=== PATIENT | female | born 1945 | race Two or more races ===

== ENCOUNTER 2016-10-14 01:02 | Emergency (ER) | payer MEDICARE ==
[~2016-10-14] VITALS: Ht 167.6 cm; Wt 97.1 kg
[2016-10-14] MEDS ORDERED: hydrALAZINE 20 MG/ML VIAL. IVP ONE (02:30)
--- NOTE | 2016-10-14 03:11 | PHYS DOC ---
Past Medical History Past Medical History: Diabetes-Type II, Hypertension Past Surgical History: Cholecystectomy, Alcohol Use: None Drug Use: None Adult General Chief Complaint Chief Complaint: HYPERTENSION HPI HPI Patient is a 71 year old female who presents with family from out of town for dizziness and uncontrolled hypertension. States she has mild dizzy feeling for the past 2 days. Checked her blood pressure today, and it is elevated so they came for evaluation. She denies vision changes, numbness, tingling, weakness, chest pain, dyspnea, cough, leg pain or swelling, nausea or vomiting, fever or chills, neck pain or manipulation. She notes medication compliance and no recent medication changes. Review of Systems Review of Systems Constitutional: Denies fever or chills [] Eyes: Denies change in visual acuity, redness, or eye pain [] HENT: Denies nasal congestion or sore throat [] Respiratory: Denies cough or shortness of breath [] Cardiovascular: No additional information not addressed in HPI [] GI: Denies abdominal pain, nausea, vomiting, bloody stools or diarrhea [] : Denies dysuria or hematuria [] Musculoskeletal: Denies back pain or joint pain [] Integument: Denies rash or skin lesions [] Neurologic: Denies headache, focal weakness or sensory changes [] Endocrine: Denies polyuria or polydipsia [] Current Medications Current Medications Current Medications Medications (Trade) Dose Ordered Sig/Ashley Start Time Stop Time Status Last Admin Dose Admin Hydralazine HCl (Apresoline) 10 mg 1X ONCE 10/14/16 02:30 10/14/16 02:31 DC 10/14/16 02:42 10 MG Allergies Allergies Allergies Coded Allergies Type Severity Reaction Last Updated Verified cortisone Allergy Intermediate Rash 10/14/16 Yes Physical Exam Physical Exam Constitutional: Well developed, well nourished, no acute distress, non-toxic appearance. [] HENT: Normocephalic, atraumatic, bilateral external ears normal, oropharynx moist, no oral exudates, nose normal. [] Eyes: PERRLA, EOMI, conjunctiva normal, no discharge. [] Neck: Normal range of motion, supple. [] Cardiovascular:Heart rate regular rhythm [] Lungs & Thorax: Bilateral breath sounds clear to auscultation [] Abdomen: Bowel sounds normal, soft, no tenderness. [] Skin: Warm, dry, no erythema, no rash. [] Back: Normal range of motion. [] Extremities: No tenderness, ROM intact, no edema. [] Neurologic: Alert and oriented X 3, normal motor function, normal sensory function, no focal deficits noted, cranial nerves II through XII intact, no extremity drift. [] Psychologic: Affect normal, judgement normal, mood normal. [] Current Patient Data Vital Signs Vital Signs Date Time Temp Pulse Resp B/P Pulse Ox O2 Delivery O2 Flow Rate FiO2 10/14/16 02:42 60 189/78 10/14/16 01:45 97.5 16 97 Room Air 97.5 Lab Values Laboratory Tests Test 10/14/16 02:05 Sodium Level 134mmol/L (136-145) L Potassium Level 3.5mmol/L (3.5-5.1) Chloride Level 102mmol/L (98-107) Carbon Dioxide Level 31mmol/L (21-32) Anion Gap 1 (6-14) L Blood Urea Nitrogen 12mg/dL (7-20) Creatinine 0.8mg/dL (0.6-1.0) Estimated GFR (Cockcroft-Gault) 71.1 Glucose Level 162mg/dL (70-99) H Calcium Level 9.4mg/dL (8.5-10.1) Laboratory Tests 10/14/16 02:05 EKG EKG EKG as interpreted by me as normal sinus rhythm, rate 58, no ST-T changes, normal intervals, no ectopy Course & Med Decision Making Course & Med Decision Making Pertinent Labs and Imaging studies reviewed. (See chart for details) Workup is unremarkable. She continues with minimal symptoms. Blood pressure is improved after medication. She will follow-up with her primary care doctor closely. Return precautions given. She and family understand and agree with plan. Family acted as taper and floater for patient during encounter. Dragon Disclaimer Dragon Disclaimer This electronic medical record was generated, in whole or in part, using a voice recognition dictation system. Departure Departure Impression: Primary Impression: Uncontrolled hypertension Disposition: HOME, SELF-CARE Condition: STABLE Referrals: NO PCP (PCP) Patient Instructions: Hypertension, [id number] Additional Instructions: Continue current blood pressure medications. Follow-up with your doctor within one week. Return for any concerns. Agustin COELLO MD Oct 14, 2016 03:11
[2016-10-14 03:21] LABS: CALCIUM 9.4 mg/dL (8.5-10.1); CREATININE 0.8 mg/dL (0.6-1.0); GFR 71.1; POTASSIUM 3.5 mmol/L (3.5-5.1)
[2016-10-14 03:30] VITALS: BP 185/79
--- NOTE | 2016-10-14 10:21 | EKG ---
[facility] [address] [place] [address] Test Date: 2016-10-14 Test Time: 01:47:09 Pat Name: SUHAS MISHRA Department: Room: Gender: F Check Examiner: : 1945 Requested By: Agustin COELLO Order Number: [id number] Reading MD: Measurements Intervals [place] Rate: 58 P: 0 TX: 176 QRS: -10 QRSD: 92 T: 14 QT: 464 QTc: 455 Interpretive Statements SINUS RHYTHM LEFTWARD AXIS QRS(T) CONTOUR ABNORMALITY CONSIDER ANTEROSEPTAL MYOCARDIAL DAMAGE POSSIBLY ABNORMAL ECG RI6.01 No previous ECG available for comparison
== END 2016-10-14 04:00 | disposition home or self-care (01) ==
LOC: ER 01:02
DX: I10 Essential (primary) hypertension (principal); R42 Dizziness and giddiness; E11.9 Type 2 diabetes mellitus without complications; Z90.49 Acquired absence of other specified parts of digestive tract; Z98.890 Other specified postprocedural states; Z88.8 Allergy status to other drugs, medicaments and biological substances
CPT/HCPCS: 36415; 80048; 93005; 96374; 99285; J0360